=== PATIENT | female | born 1995 ===

== ENCOUNTER 2018-07-09 10:52 | Inpatient (IN) ==
[2018-07-09 11:51] LABS: Amphetamine Screen,Urine Negative ng/mL (Cutoff=1000); Barbiturate Screen,Urine Negative ng/mL (Cutoff=200); Benzodiazepines Screen,Urine Negative ng/mL (Cutoff=200); Cannabinoid Screen,Urine Negative ng/mL (Cutoff = 50); Cocaine Screen,Urine Negative ng/mL (Cutoff= 300); Opiate Screen,Urine Negative ng/mL (Cutoff=300); Phencyclidine Screen,Urine Negative ng/mL (Cutoff=25)
[2018-07-09] MEDS ORDERED: Metoclopramide 10 MG/2 ML VIAL IVP PRN (12:19)
[2018-07-09] MEDS ORDERED: Famotidine 20 MG/2 ML VIAL IVP PRN (12:19)
[2018-07-09] MEDS ORDERED: Naloxone 0.4 MG/ML INJ IVP PRN (12:19)
[2018-07-09] MEDS ORDERED: Lidocaine 1% 20 ML MDV INFILT PRN (12:19)
[2018-07-09] MEDS ORDERED: *HR* Nalbuphine 10 MG/ML AMPUL IVP PRN (12:19)
[2018-07-09] MEDS ORDERED: Ondansetron 4 MG/2 ML VIAL IVP PRN (12:19)
[2018-07-09] MEDS ORDERED: Ringers Solution, Lactated 1,000 ML ONE (12:25)
[2018-07-09] MEDS ORDERED: Ringers Solution, Lactated 1,000 ML IVC SCH (12:30)
[2018-07-09 12:34] LABS: Basophils # 0.1 K/mcL (0.0-0.2); Basophils % 0.3 %; Eosinophils # 0.2 K/mcL (0.0-0.6); Eosinophils % 0.8 %; Hematocrit 33.7 % (35.3-44.9); Hemoglobin 11.7 g/dL (11.5-15.4); Lymphocytes # 1.7 K/mcL (0.6-4.6); Lymphocytes % 7.7 %; Mean Corpuscular HGB Conc 34.7 g/dL (31.6-35.5); Mean Corpuscular Hemoglobin 30.9 pg (28.0-33.3); Mean Corpuscular Volume 88.9 fL (83.0-100.0); Mean Platelet Volume 10.9 fL (9.4-12.4); Monocytes # 1.4 K/mcL (0.0-1.3); Monocytes % 6.5 %; Neutrophils # 18.4 K/mcL (1.6-8.9); Platelet Count 274 K/mcL (140-400); Red Blood Count 3.79 M/mcL (3.82-4.97); Red Cell Distribution Width 12.8 % (11.5-14.5); Segmented Neutrophils % 83.7 %
[2018-07-09] MEDS ORDERED: Bupivacaine-MPF 0.25% 10 ML VIAL EP ONE (12:38)
[2018-07-09] MEDS ORDERED: *HR* FentaNYL (PF) 100 MCG/2 ML VIAL EP ONE (12:38)
[2018-07-09] MEDS ORDERED: Epidural Premix (fent/bupiv) 110 ML EP SCH (12:45)
[2018-07-09] MEDS ORDERED: Lidocaine -MPF 1% 5 ML AMPUL ONE (12:45)
[2018-07-09] MEDS ORDERED: Epidural Premix (fent/bupiv) 110 ML EP ONE (12:52)
--- NOTE | 2018-07-09 13:26 | Anesthesia Evaluation PreOp ---
Date of Encounter: 07/09/18 Time of Encounter: 13:24 - Past History Planned Operation: VICKIE Cardiac History: Denies any Significant Hx Pulmonary History: Smoker (vapes) UNIVERSITY CONTROLLER History: Denies Any Significant HX Other Medical History: Denies Any Significant HX Anesthesia History: No Prior Anesthetic Complications : Yes Alcohol Use: none Drug use: marijuana, methamphetamine Medications and Allergies Formula Tablet 1 tab PO DAILY 07/09/18 [History] 3 Allergy/AdvReac Type Severity Reaction Status Date / Time No Known Allergies Allergy Verified 07/09/18 11:14 - Meds/Allergy Pre-op Review Medications Reviewed: Yes Allergies Reviewed: Yes Beta Blockers on Current Med List: No Anesthesia Results - Labs 07/09/18 12:20 Anesthesia Exam O2 Sat Height 1.6 m Weight 66.587 kg NPO (# of Hours): solids > 4 hours Pain Scale: 10 Pain Scale Used: Numeric (1 - 10) - HEENT Pupil (Motor): Pupils equal Mallampati: II Teeth: Normal Oral Opening: Greater than 3 - UNIVERSITY CONTROLLER LOC: Oriented UNIVERSITY CONTROLLER Motor: Normal RUE, Normal LUE, Normal RLE, Normal LLE, Normal Face UNIVERSITY CONTROLLER Sensory: Normal: RUE, LUE, RLE, LLE, Face - Cardiac Rhythm: Regular Murmur: None - Pulmonary Breath Sounds: bilateral Clear Respiratory Effort: Symmetrical Anesthesia Assess/Plan ASA Score: 2 Modified Kvng Scale for Level of Consciousness: Anixous, agitated or restless Anesthetic Plan: Regional Autologous Blood: No Monitoring Plan: Standard Monitors Recovery Plan: Other
--- NOTE | 2018-07-09 13:30 | Anesthesia Procedures ---
Date of Encounter: 07/09/18 Time of Encounter: 13:25 Procedures: Anesthesia - Epidural/Spinal Patient ID/Chart reviewed: Yes Patient examined: Yes OB Eval: Gestational age: 37 weeks 0 days OB Eval: : 1 OB Eval: Hx Para: 0 OB Eval: Dilated at (cm): 1 OB Eval: Contractions: Non-stressed pattern Consent Obtained: Yes Supplemental Oxygen: None/Room Air Site Prep: Aseptic Technique, Sterile prep and drape, Povidone-Iodine 1% Patient position: upright Local Anesthetic: Lidocaine 1% Amount of Local Anesthetic used: 3 Touhy Needle Gauge: 18 Touhy Needle Depth (cm): 6 Catheter Depth at Skin (cm): 11 Test Dose (1.5% Lido + Epi): Volume given (mls): 5 Test Dose Result: Negative Loading Dose: 0.25% Marcaine (mls): 5 Loading Dose: Fentanyl (mcg): 100 Loading Dose Administered: Thru Catheter Infusion Med: 0.125% Bupivacaine w/ 2 mcg/ml Fentanyl Infusion Rate (mls/hr): 14 (w /demand bolus of 5mL q30min PRN) Catheter Secured in Place: Tegaderm, Tape Interspace Used: L3-L4 Loss of Resistance (ENRIQUETA): Yes Blood: No CSF: No Paresthesia: No Procedure: successful x 1 attempt; patient tolerated procedure well; VSS Vitals + FHT's: see [facility]'s electronic records
--- NOTE | 2018-07-09 13:35 | OB/GYN History & Physical ---
Date of Encounter: 07/09/18 Time of Encounter: 13:32 Assessment and Plan (1) 37 weeks gestation of Current visit: Yes Status: Acute Admit to L&D for observation of labor Expectant management Labs-CBC and clot to hold CEFM GBS unknown - prophylaxis Pain management plan-epidural and may have upon request Anticipate Dr. Damon as OB marketing communications leader and is available as needed (2) Intrauterine Current visit: Yes Status: Acute (3) SROM (spontaneous rupture of membranes) Current visit: Yes Status: Acute History of Present Illness Chief complaint: vaginal bleeding HPI: Ms. Blanco is a 22 year old female at 37 weeks 0 days gestation with an estimated date of of 07/30/18 dated by LMP. She presents with complaints of vaginal bleeding since 5:00 this morning. She reports blood was dripping her vagina after she went to the bathroom. She endorses good movement and denies contractions, leakage of fluid. She has been seen by the midwives during this but was late to care and overall had scant care. records are available electronically and have been reviewed. Past Med Surg Social Fam HX - Past Medical History Psychiatric history: anxiety, bipolar, depression - Past Surgical History Additional surgical history: t&a - Social History Smoking Status: Former smoker Alcohol use: none Drug use: marijuana, methamphetamine - Family History Mother Age: 43 Living Status: Still Living Hx Family Cardiac Disorders: Yes (htn) Hx Family Respiratory Disorders: No Hx Family Cancer: No Hx Family GI Disorders: No Hx Family Genitourinary Disorders: No Hx Family Endocrine Disorder: Yes (hypothyroidism) Hx Family Musculoskeletal Disorders: No Hx Family Neuromuscular Disorders: No Hx Family Neurologic Disorders: No Hx Family HEENT Disorders: No Hx Family Autoimmune Disorders: No Hx Family Reproductive Disorders: No Hx Family Psychosocial Disorders: No Hx Family Medical Disorders: No Obstetrical History - Pregnancies : 1 Para: 0 Term: 0 : 0 Ab's: 0 Livin Medications and Allergies Formula Tablet 1 tab PO DAILY 07/09/18 [History] 3 Allergy/AdvReac Type Severity Reaction Status Date / Time No Known Allergies Allergy Verified 07/09/18 11:14 Review of System OB All systems PM: reviewed and no additional remarkable complaints except as stated Exam - Constitutional Constitutional: well developed, well nourished, average body habitus, moderate distress - HEENT HEENT: PERRL - Neck Neck exam: full ROM - Lungs Respiratory exam: CTAB - Cardiovascular Cardiovascular exam: RRR, +S1, +S2 - Breasts Breast: bilateral: normal - Abdomen Abdomen: Present: bowel sounds normal, gravid, non tender - Extremities Extremities exam: pedal edema - Vulva Vulva: bilateral: normal - Vagina Vagina: Present: normal moisture - Cervix Dilation: 1 Effacement: 80 Station: -1 - Uterus Uterus exam: Present: normal size, normal contour - Adnexa Adnexa: bilateral: normal - Anus/Rectum Anus/Rectum: Present: normal perianal skin Results Result Diagrams: 07/09/18 12:20 Abnormal lab results WBC 22.0 K/mcL (4.3-11.1) H 07/09/18 12:20 RBC 3.79 M/mcL (3.82-4.97) L 07/09/18 12:20 Hct 33.7 % (35.3-44.9) L 07/09/18 12:20 Neutrophils # 18.4 K/mcL (1.6-8.9) H 07/09/18 12:20 Monocytes # 1.4 K/mcL (0.0-1.3) H 07/09/18 12:20 All other labs normal. - VTE Reasons for not Prescribing Prophylaxis: Treatment not Indicated - Low risk for VTE
[2018-07-09] MEDS ORDERED: Penicillin G Potassium 5,000,000 UNIT in D5% in Water (Mini-Bag+) 100 ML IVPB ONE (13:42)
[2018-07-09] MEDS ORDERED: Oxytocin 20 units/ LR 1000 mL 20 UNIT/1,000 ML BAG IVC ONE (15:22)
[2018-07-09] MEDS ORDERED: Penicillin G Potassium 2,500,000 UNIT in 0.9 % Sodium Chloride 100 ML IVPB SCH (16:00)
--- NOTE | 2018-07-09 16:33 | OB/GYN Procedure Note ---
Delivery - Delivery Date: 07/09/18 Provider: Simona Fernandez Intrapartum events: none Delivery induction: none Delivery monitor: external FHT, external uterine Anesthesia: epidural Quantitated Blood Loss: 200 - (s) Infant A Delivery Date: 07/09/18 Infant Delivery Time: 16:10 Presentation: vertex Position: JOSE Route of delivery: Gender: Female Viability: Viable Pounds: 5 Ounces: 11 Weight Gram: 2.575 kg at 1 minute: 8 at 5 mins: 9 Shoulder Dystocia: not encountered Specimens collected: cord blood Placenta: spontaneous Cord: 3 umbilical vessels - Repair Episiotomy: none Laceration Description: Superficial (perineal - hemostatic ) - Complications Delivery complications: none Delivery comments: This is a 22-year-old G1 now P1 who was admitted for vaginal bleeding followed by spontaneous rupture of membranes. She progressed spontaneously to the second stage of labor. She finished for about an hour. She delivered a viable female "JOSE Jennings over an intact perineum. The cord was clamped by wood crafter after pulsation ceased and cut by a patient's mother. No nuchal cord was identified. No shoulder dystocia was encountered. scores were 8 at 1 minute and 9 at 5 minutes. The infant weighed 5 lbs. 11 oz. (2575g). Inspection revealed no perineal, sidewall, or cervical lacerations. The uterus was firm with no active bleeding. EBL was 200 mL. Placenta and umbilical artery blood gases were not sent. There were no consultations during the procedure. Mom and baby are skin to skin following delivery. I was gowned and gloved with Dr. Hernandez delivered the infant. - Disposition Mom disposition: stable in LDR disposition: stable in LDR
[2018-07-09] MEDS ORDERED: Measles/Mumps/Rubella Vacc 0.5 ML VIAL SQ PRN (18:34)
[2018-07-09] MEDS ORDERED: Oxytocin 20 units/ LR 1000 mL 20 UNIT/1,000 ML BAG IVC SCH (18:34)
[2018-07-09] MEDS ORDERED: Acetaminophen 325 MG TABLET PO PRN (18:34)
[2018-07-09] MEDS: Ibuprofen 600 MG TABLET PO PRN (19:51)
[2018-07-10] MEDS: Ibuprofen 600 MG TABLET PO PRN ×2 (03:40→11:54)
[2018-07-10] MEDS ORDERED: Prenatal Vit/FA 1 EACH TABLET PO SCH (09:00)
[2018-07-10 09:54] VITALS: BP 97/55
--- NOTE | 2018-07-10 10:56 | Discharge Summary ---
Date of Encounter: 07/10/18 Time of Encounter: 10:53 - Discharge Diagnosis (1) Vaginal delivery Priority: Primary Status: Acute Comments: Stable in PP, meeting all PP milestones, pain well managed on po pain medication , tolerates diet, desires discharge to guest. - Discharge Medications Prescriptions: Ibuprofen [Motrin] 600 mg PO Q6HR PRN #60 tablet PRN Reason: Cramping Docusate [Colace] 100 mg PO BID #30 capsule Home Medications: Acetaminophen [Tylenol] 650 mg PO Q6HR PRN tablet 07/10/18 [Rx] Docusate [Colace] 100 mg PO BID #30 capsule 07/10/18 [Rx] Ibuprofen [Motrin] 600 mg PO Q6HR PRN #60 tablet 07/10/18 [Rx] Vit/FA 1 each PO DAILY tablet 07/10/18 [Rx] Allergies/Adverse Reactions: 3 Allergy/AdvReac Type Severity Reaction Status Date / Time No Known Allergies Allergy Verified 07/09/18 11:14 Data Procedures and tests throughout hospitalization: Laboratory Tests 07/09/18 07/09/18 11:06 12:20 WBC 22.0 H RBC 3.79 L Hgb 11.7 Hct 33.7 L MCV 88.9 MCH 30.9 MCHC 34.7 RDW 12.8 Plt Count 274 MPV 10.9 Immature Gran % 1.0 Seg Neutrophils % 83.7 Lymphocytes % 7.7 Monocytes % 6.5 Eosinophils % 0.8 Basophils % 0.3 Neutrophils # 18.4 H Lymphocytes # 1.7 Monocytes # 1.4 H Eosinophils # 0.2 Basophils # 0.1 Urine Opiates Screen Negative Ur Barbiturates Screen Negative Ur Phencyclidine Scrn Negative Ur Amphetamines Screen Negative U Benzodiazepines Scrn Negative Urine Cocaine Screen Negative U Marijuana (THC) Screen Negative Ur Drug Screen Interp See Below Labs on day of discharge: Labs from last 24 hours 07/09/18 07/09/18 12:20 11:06 WBC 22.0 H RBC 3.79 L Hgb 11.7 Hct 33.7 L MCV 88.9 MCH 30.9 MCHC 34.7 RDW 12.8 Plt Count 274 MPV 10.9 Immature Gran % 1.0 Seg Neutrophils % 83.7 Lymphocytes % 7.7 Monocytes % 6.5 Eosinophils % 0.8 Basophils % 0.3 Neutrophils # 18.4 H Lymphocytes # 1.7 Monocytes # 1.4 H Eosinophils # 0.2 Basophils # 0.1 Urine Opiates Screen Negative Ur Barbiturates Screen Negative Ur Phencyclidine Scrn Negative Ur Amphetamines Screen Negative U Benzodiazepines Scrn Negative Urine Cocaine Screen Negative U Marijuana (THC) Screen Negative Ur Drug Screen Interp See Below Date of admission: 07/09/18 10:52 Primary care physician: Rachel Salazar Consults: 07/09/18 18:34 Consult to Lumber Tripper [CONS] Routine Comment: Vaginal delivery, consult needed Discharging clinician: Kita Vázquez Anticipated date of discharge: 07/10/18 - Patient Status Disposition: Home, Self-Care Condition: Good Functional capacity at discharge: independent ambulation - Discharge Instructions Follow Up With: Rachel Salazar [Primary Care Provider] - - Diet and Activity Activity: resume usual activities as tolerated Diet: regular diet Hospital Course Reason for admission: IUP at term Delivery: Episiotomy: none Laceration: other Other procedures: none complications: none Discharge diagnosis: IUP at term delivered baby: female Hospital course: Delivery - Delivery Date: 07/09/18 Provider: Simona Fernandez Intrapartum events: none Delivery induction: none Delivery monitor: external FHT, external uterine Anesthesia: epidural Quantitated Blood Loss: 200 - Infant (s) A Infant Delivery Date: 07/09/18 Infant Delivery Time: 16:10 Presentation: vertex Position: JOSE Route of delivery: Gender: Female Viability: Viable Pounds: 5 Ounces: 11 Weight Gram: 2.575 kg at 1 minute: 8 at 5 mins: 9 Shoulder Dystocia: not encountered Specimens collected: cord blood Placenta: spontaneous Cord: 3 umbilical vessels - Repair Episiotomy: none Laceration Description: Superficial (perineal - hemostatic ) - Complications Delivery complications: none Delivery comments: This is a 22-year-old G1 now P1 who was admitted for vaginal bleeding followed by spontaneous rupture of membranes. She progressed spontaneously to the second stage of labor. She finished for about an hour. She delivered a viable female infant "Hi", JOSE over an intact perineum. The cord was clamped by bleach boiler packer after pulsation ceased and cut by a patient's mother. No nuchal cord was identified. No shoulder dystocia was encountered. scores were 8 at 1 minute and 9 at 5 minutes. The infant weighed 5 lbs. 11 oz. (2575g). Inspection revealed no perineal, sidewall, or cervical lacerations. The uterus was firm with no active bleeding. EBL was 200 mL. Placenta and umbilical artery blood gases were not sent. There were no consultations during the procedure. Mom and baby are skin to skin following delivery. I was gowned and gloved with Dr. Hernandez delivered the . - Disposition Mom disposition: stable in PP and appropriate for discharge. Time Attestation: Total time spent providing and/or coordinating discharge services: Time Spent: Less than 30 minutes Exam - Constitutional Vitals: Temp Pulse Resp BP Pulse Ox 98.2 F 74 16 97/55 98 07/10/18 07:30 07/10/18 07:30 07/10/18 07:30 07/10/18 07:30 07/10/18 03:00 General appearance IM: A&O X 3 - Respiratory Respiratory exam: Present: CTAB - Cardiovascular Cardiovascular exam IM: Present: RRR - GI/Abdominal GI/Abdominal exam IM: soft - Uterine Tone: Firm Uterus Position: 1 Finger Below Umbilicus - Extremities Exam Extremities exam IM: Present: normal capillary refill, normal inspection - Neurological Exam Neurological exam: normal gait, oriented X3 - Psychiatric Additional comments: Reports good mood
== END 2018-07-10 13:45 | disposition home or self-care (01) | DRG 775 ==
LOC: 1NENULAB → OBSVTOIN 10:52 → 1NENUOBS 18:01
PROVIDERS: ADMIT Student in an Organized Health Care Education/Training Program; ATTEND Student in an Organized Health Care Education/Training Program